=== PATIENT | male | born 1955 | race Caucasian/White ===

== ENCOUNTER → 2019-01-30 | Outpatient (CLI) | payer OTHER | LOC: M.ULTRA 16:37 | DX: R59.0 Localized enlarged lymph nodes (principal) ==

== ENCOUNTER → 2019-02-11 | Outpatient (CLI) | payer OTHER ==
[2019-02-11 08:00] LABS: HEMATOCRIT 41.2 % (42.0-52.0); HEMOGLOBIN 13.7 gm/dL (14.0-18.0); MCH 26.8 pg (26.0-34.0); MCHC 33.2 g/dL (28.0-37.0); MCV 80.6 fL (80.0-100.0); MPV 8.5 fl. (7.2-11.1); RBC 5.11 mil/uL (4.50-6.00); RDW-CV 14.8 % (10.5-14.5); WBC 6.3 thou/uL (4.0-11.0)
[2019-02-11 08:10] LABS: PROTIME 10.4 Seconds (9.20-11.50)
[2019-02-11 08:31] LABS: CALCIUM 9.4 mg/dL (8.5-10.1); CREATININE 1.2 mg/dL (0.6-1.3); POTASSIUM 4.4 mmol/L (3.5-5.1)
--- NOTE | 2019-02-20 17:06 | PATH ---
[facility] [address] [place] [address] PATHOLOGY RPT PROCEDURE Name: STEPHANE VALENCIA Az Room: [facility]#: [id number] Admission: 02/11/19 Date of : 55 Discharge: Report #: [id number] Path Case #: [id number] Note [facility] Accession Number: [id number] TESTS RESULT FLAG UNITS REF RANGE LAB Clinician Provided Cytology Information No. of containers..01 Other (Miscellaneous) Source: LT LYMPH NODE DIAGNOSIS: LT NECK MASS/LYMPH NODE, IMAGE-GUIDED FNA ATYPICAL LYMPHOID POPULATION, SUSPICIOUS FOR LYMPHOMA. SEE COMMENT. 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 FISH PANEL IS PENDING FOR THE AGGRESSIVE NHL PANEL AND WILL BE THE SUBJECT OF A SEPARATE REPORT (IO RESULT NUMBER [id number]). REMOVAL OF THE ENTIRE MASS IS RECOMMENDED FOR FURTHER CLASSIFICATION, IF CLINICALLY INDICATED. DR. HUGH QUINTERO NOTIFIED AT APPROXIMATELY 1715 ON 02/16/2019. REVIEWED WITH DR. CHRISTIANNE HERNANDEZ (HEMATOPATHOLOGIST), WHO AGREES WITH THE DIAGNOSIS. Addendum: 02 Special studies report received from [facility], [address] [place] [address], [address], [place], [address], on case [id number], labeled with their number [id number], dated 02/19/2019. . Fluorescence in situ Hybridization (FISH) Report TargetGene Analysis . RESULT: Assay specific abnormality detected by Aggressive B-cell Lymphoma FISH panel: BCL2 gene rearrangement Note: Other abnormality was detected. See interpretation. . Specimen Type: Tissue, Left Neck Lymph Node Mass . Indication for Study: Evaluate for aggressive B-cell lymphoma. . INTERPRETATION: Fluorescence in situ hybridization (FISH) analysis was performed on this patient's specimen using DNA probes for aggressive B-cell lymphoma panel. Two hundred interphase nuclei were examined for each probe and the signal patterns revealed the following: . Positive for a rearrangement of BCL2 gene (69.5% of nuclei). Two variant positive populations of nuclei were observed: one (23.5% of nuclei) with an extra 3'BCL2 signal; and the second (6.5% of nuclei) with one 5'BCL2 signal and two 3[place] [address] PATHOLOGY RPT PROCEDURE Name: STEPHANE VALENCIA [facility] [id number] Admission: 02/11/19 Date of : 55 Discharge: Report #: [id number] Path Case #: [id number] . Negative for a MYC gene rearrangement. 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 . The signal pattern obtained with the remaining BCL6 probe did not differ significantly from the normal controls. . Translocations involving the BCL2 gene (the molecular lesion often associated with the t(14;18)) are found in approximately 80-90% of cases of follicular lymphoma, but may also be observed in approximately 30% of cases of large B-cell lymphoma. . Genetic changes other than those assayed in this study cannot be ruled out on the basis of this testing. Correlation with cytogenetic, clinical and hematopathological findings is suggested for a complete interpretation of the results. Follow-up FISH analysis may be considered as a means to monitor the clinical course of the disease. . See Flow Cytometry report [id number] for further information. . The following [employer]Gene FISH analysis was performed on this patient's specimen: . Probe Detection Parameters Result ISCN BCL2 (18q21) Detects a rearrangement Detected nuc paulette(5'BCL2, of the BCL2 gene 3'BCL2)x2(5'BCL2 sep 3'BCL2x1) (79/200)/(5'BCL2x2, 3'BCL2x3) (5'BCL2 con 3'BCL2 x1)(47/200)/(5'BCL2 x1,3'BCL2x2)(13/200) MYC (8q24) Detects a rearrangement See nuc paulette(5'MYC,3'MYC) of the MYC gene Interpretation x3(5'MYC con 3'MYC x3)(36/200) BCL6 (3q27) Detects a rearrangement Not Detected nuc paulette(5'BCL6, of the BCL6 gene 3'BCL6)x2(5'BCL6 con 3'BCL6x2)(200) . at [employer], [employer]. Eloy Olivier, PhD, [facility] [employer]gage Agent, Clinical Cytogenetics . Methodology: The patient specimen is processed onto a glass slide. Fluorescent DNA probe(s) is(are) applied to the cells on the slide under conditions of denaturation followed by hybridization. String[place] [address] PATHOLOGY RPT PROCEDURE Name: STEPHANE VALENCIA Room: [facility]#: [id number] Admission: 02/11/19 Date of : 55 Discharge: Report #: [id number] Path Case #: [id number] the slide is subsequently counterstained. A minimum of 100 interphase nuclei are analyzed unless otherwise indicated above. . Intended Use: This assay is considered qualitative and is not intended to be used as a measure of quantitative comparison. . Disclaimer This Test was performed by [employer] at [facility], [address]. [facility] is a business unit of [employer] a wholly-owned subsidiary of [employer]. . . Any images(s) that accompany this report is/are a veterans employment representative image(s) only and should not be used to render a diagnosis. . This test was developed and its performance determined by [employer], [employer]. It has not been cleared or approved by the U.S. Food and Drug Administration. . A complete copy of the report is on file. . Professional services performed by [employer] at [address] [facility] [address], [place] [address]. Technical services performed by [employer] at [facility] [facility] [address], [place] [address]. . ([facility] 02/20/2019) . . [facility]/02/20/2019 Addendum Electronically Signed by Jos Padgett MD, Pathologist Signed out by: 02 Jos Padgett MD, Pathologist NPI- [id number] Performed by: 01 Natalie Orozco, Cath Lab Manager (ASCP) FLAG LEGEND: L-Low Normal,H-High Normal,LL-Alert Low,HH-Alert High <-Panic Low,>-Panic High,A-Abnormal,AA-Critical Abnormal Performed at: [facility] [address] [address] PATHOLOGY RPT PROCEDURE Name: STEPHANE VALENCIA Room: [facility]#: [id number] Admission: 02/11/19 Date of : 55 Discharge: Report #: [id number] Path Case #: [id number] [place] [address] Mychal Koenig MD, [address] [place] [address] [address] [place] [address] Jos Padgett MD, Specimen Comment: A courtesy copy of this report has been sent to Specimen Comment: [phone]. Specimen Comment: Report sent to Performed at: [address], [place], [place] [id number] MD Mychal Koenig MD Phone: [phone]
== END | disposition home or self-care (01) ==
LOC: M.LAB 07:30 → M.ULTRA 08:30
PROVIDERS: Family Medicine
DX: C85.91 Non-Hodgkin lymphoma, unspecified, lymph nodes of head, face, and neck (principal); K21.9 Gastro-esophageal reflux disease without esophagitis; Z88.8 Allergy status to other drugs, medicaments and biological substances; Z79.899 Other long term (current) drug therapy